=== PATIENT | female | born 1995 | race Two or more races ===

== ENCOUNTER 2016-10-31 01:09 | Emergency (ER) | payer SELFPAY ==
[~2016-10-31] VITALS: Ht 160 cm; Wt 54.4 kg
[2016-10-31 02:33] LABS: BASOPHILS # (AUTO) 0.1 K/uL (0.0-8.0); BASOPHILS % (AUTO) 0.8 % (0.0-2.0); CALCIUM 9.6 mg/dL (8.5-10.1); CREATININE 0.8 mg/dL (0.6-1.3); EOSINOPHILS # (AUTO) 0.1 K/uL (0.0-0.7); EOSINOPHILS % (AUTO) 1.8 % (0.0-7.0); HEMATOCRIT 38.1 % (31.2-41.9); HEMOGLOBIN 13.1 g/dL (10.9-14.3); LYMPHOCYTES # (AUTO) 2.5 K/uL (20.0-40.0); LYMPHOCYTES % (AUTO) 38.2 % (20.5-74.5); MEAN CORPUSCULAR HEMOGLOBIN 29.1 uug (24.7-32.8); MEAN CORPUSCULAR HGB CONC 35 g/dL (32.3-35.6); MEAN CORPUSCULAR VOLUME 84.4 fL (75.5-95.3); MONOCYTES # (AUTO) 0.6 K/uL (2.0-10.0); MONOCYTES % (AUTO) 9.3 % (0-11); NEUTROPHILS # (AUTO) 3.1 K/uL (1.8-8.9); NEUTROPHILS % (AUTO) 49.9 % (31.5-64.5); PLATELET COUNT (AUTO) 279 K/uL (179-408); POTASSIUM 3.5 mmol/L (3.5-5.1); RED BLOOD CELL COUNT(AUTO) 4.51 MIL/uL (3.63-4.92); WHITE BLOOD COUNT (AUTO) 6.4 K/uL (3.8-11.8)
[2016-10-31 02:38] LABS: ETHANOL < 3 MG/DL (0-0)
[2016-10-31 03:03] LABS: *AMPHETAMINE, URINE NEGATIVE (NEGATIVE); *BARBITURATE, URINE NEGATIVE (NEGATIVE); *CANNABINOID, URINE NEGATIVE (NEGATIVE); *COCCAINE, URINE NEGATIVE (NEGATIVE); *OPIATE, URINE NEGATIVE (NEGATIVE); *PHENCYCLIDINE SCREEN,URINE NEGATIVE (NEGATIVE)
[2016-10-31 03:09] LABS: *URINE HCG, QUAL NEGATIVE (NEGATIVE)
[2016-10-31] MEDS ORDERED: KETOROLAC TROMETHAMINE 30 MG INJ IVP ONE (05:00)
[2016-10-31] MEDS ORDERED: KETOROLAC TROMETHAMINE 30 MG INJ ONE (05:03)
--- NOTE | 2016-10-31 05:19 | NUR ---
Patient discharged to home in stable conditon. Written and verbal after care instructions given. Patient verbalizes understanding of instructions.
== END 2016-10-31 05:20 | disposition home or self-care (01) ==
LOC: ER 01:17
DX: R20.2 Paresthesia of skin (principal); M25.511 Pain in right shoulder; F41.9 Anxiety disorder, unspecified; R21 Rash and other nonspecific skin eruption; R55 Syncope and collapse
CPT/HCPCS: 36415; 70450; 71010; 73030; 80048; 80307; 84484; 84703; 85025; 85730; 93005; 99285; A4663; G0482; J1885; 70030-TC; G6040-TC